=== PATIENT | male | born 1960 | race Caucasian/White ===

== ENCOUNTER 2016-09-25 08:20 | Emergency (ER) | payer SELFPAY ==
[2016-09-25 08:38] VITALS: BP 186/93
--- NOTE | 2016-09-25 09:13 | EDM.PDOC ---
ED HISTORY OF PRESENT ILLNESS - General Chief Complaint: ENT Problem Stated Complaint: INFECTED TOOTH Time Seen by Provider: 09/25/16 09:07 Source: Reports: Patient, RN notes reviewed History Limitations: Reports: No limitations - History of Present Illness INITIAL COMMENTS - FREE TEXT/NARRATIVE: 55-year-old male presents with left lower jaw pain. Long history of poor dental hygiene with increasing pain involving stubs of left incisors and canine. No fever, sweats, or chills. Has been using Excedrin for control of discomfort. Apparently dentist and has not seen patient due to lack up appointments. Symptom Onset Date: 09/21/16 Severity: moderate Location, General: Reports: other (Mouth.) Quality: Reports: Ache - Related Data Allergies/ADRs: Allergies Allergy/AdvReac Type Severity Reaction Status Date / Time camphor* [From Vicks Vaporub] Allergy Shortness Verified 09/25/16 08:37 of Breath eucalyptus Allergy Shortness Verified 09/25/16 08:37 [From Vicks Vaporub] of Breath menthol [From Vicks Vaporub] Allergy Shortness Verified 09/25/16 08:37 of Breath petrolatum,white Allergy Shortness Verified 09/25/16 08:37 [From Vicks Vaporub] of Breath turpentine oil Allergy Shortness Verified 09/25/16 08:37 [From Vicks Vaporub] of Breath Home Meds: Home Meds NK [No Known Home Meds] 03/12/14 [History] Past Medical History - Past Health History Medical/Surgical History: Denies Medical/Surgical History Social & Family History - Tobacco Use Smoking Status *Q: Current Every Day Smoker Years of Tobacco use: 30 Packs/Tins Daily: 1 - Caffeine Use Caffeine Use: Reports: Coffee - Alcohol Use Days Per Week of Alcohol Use: 0 - Recreational Drug Use Recreational Drug Use: No ED ROS GENERAL - Review of Systems Review Of Systems: ROS reveals no pertinent complaints other than HPI. ED EXAM, GENERAL - Physical Exam Exam: See Below Exam Limited By: No limitations General Appearance: alert, WD/WN, no apparent distress Ears: normal external exam, normal canal, hearing grossly normal, normal TMs Throat/Mouth: Other (Patient has bridge and upper. Left lower jaw has 2 stubs of teeth with tenderness on percussion of gum) Head: facial swelling Neck: normal inspection, supple, non-tender Respiratory/Chest: no respiratory distress Course - Vital Signs Text/Narrative:: Patient with evidence of tooth abscess left lower jaw. Treated with Pen-Vee K 500 mg 4 times daily x10 days Ibuprofen 800 mg 3 times a day when necessary Offered patient appointment to see dentist associated with hospital He will make own appointment Last Recorded V/S: Last Vital Signs Temp 98.5 F 09/25/16 08:33 Pulse 59 L 09/25/16 08:33 Resp 16 09/25/16 08:33 BP 186/93 H 09/25/16 08:33 Pulse Ox 96 09/25/16 08:33 Departure - Departure Time of Disposition: 09:12 Disposition: Home, Self-Care 01 Clinical Impression: Toothache, Dental abscess Forms: ED Department Discharge Additional Instructions: Pen-Vee K 500 mg 4 times daily x10 days Ibuprofen 800 mg 3 times a day when necessary Make appointment to see dentist.
== END 2016-09-25 09:15 | disposition home or self-care (01) ==
LOC: JP.ED 08:20
DX: K04.7 Periapical abscess without sinus (principal); F17.210 Nicotine dependence, cigarettes, uncomplicated; Z88.8 Allergy status to other drugs, medicaments and biological substances
CPT/HCPCS: 99283

== ENCOUNTER 2017-08-02 00:48 | Emergency (ER) | payer SELFPAY ==
[2017-08-02] MEDS ORDERED: Naloxone 0.4 MG/ML SDV IVPUSH ONE (00:52)
[2017-08-02] MEDS ORDERED: Sodium Chloride 0.9% 1,000 ML IV SCH (01:00)
--- NOTE | 2017-08-02 01:05 | EDM.PDOC ---
ED HPI GENERAL MEDICAL PROBLEM - General Stated Complaint: MED[facility] Time Seen by Provider: 08/02/17 00:52 Source of Information: Reports: EMS, RN Notes Reviewed History Limitations: Reports: Altered Mental Status - History of Present Illness INITIAL COMMENTS - FREE TEXT/NARRATIVE: 56-year-old gentleman brought in by EMS services for a collapse and unresponsive event, no family members are present story given by EMS was he was at the kitchen table collapsed to the floor was diaphoretic GCS of 3 on scene helicopter was initiated brought to the emergency department for further evaluation. On arrival he was arousable to painful stimuli would follow commands all extremities - Related Data Allergies Allergy/AdvReac Type Severity Reaction Status Date / Time camphor* [From Vicks Vaporub] Allergy Shortness Verified 08/02/17 01:42 of Breath eucalyptus Allergy Shortness Verified 08/02/17 01:42 [From Vicks Vaporub] of Breath menthol [From Vicks Vaporub] Allergy Shortness Verified 08/02/17 01:42 of Breath petrolatum,white Allergy Shortness Verified 08/02/17 01:42 [From Vicks Vaporub] of Breath turpentine oil Allergy Shortness Verified 08/02/17 01:42 [From Vicks Vaporub] of Breath Home Meds: Home Meds Hydrochlorothiazide 12.5 mg PO DAILY 08/02/17 [History] Past Medical History Cardiovascular History: Reports: Hypertension Social & Family History - Tobacco Use Smoking Status *Q: Current Every Day Smoker Years of Tobacco use: 30 Packs/Tins Daily: 1 - Caffeine Use Caffeine Use: Reports: Coffee - Alcohol Use Days Per Week of Alcohol Use: 0 - Recreational Drug Use Recreational Drug Use: No ED ROS GENERAL - Review of Systems Review Of Systems: Unable To Obtain ED EXAM, NEURO - Physical Exam Exam: See Below Exam Limited By: Altered Mental Status General Appearance: Lethargic Eye Exam: Bilateral Eye: Normal Inspection Ears: Normal External Exam, Normal Canal, Hearing Grossly Normal, Normal TMs Nose: Normal Inspection, Normal Mucosa, No Blood Throat/Mouth: Normal Inspection, Normal Lips, Normal Teeth, Normal Gums, Normal Oropharynx, Normal Voice, No Airway Compromise Head Exam: Atraumatic, Normocephalic Neck: Normal Inspection, Supple, Non-Tender, Full Range of Motion Respiratory/Chest: No Respiratory Distress, Lungs Clear, Normal Breath Sounds, No Accessory Muscle Use Cardiovascular: Regular Rate, Rhythm, No Murmur GI/Abdominal: Soft, Non-Tender Neurological: Other (GCS of 11) Course - Vital Signs Last Recorded V/S: Last Vital Signs Temp 96.7 F 08/02/17 02:15 Pulse 61 08/02/17 02:15 Resp 14 08/02/17 02:15 BP 166/82 H 08/02/17 02:15 Pulse Ox 98 08/02/17 02:15 - Orders/Labs/Meds Orders: Active Orders 24 hr Category Date Time Status Head wo Cont [CT] Urgent Exams 08/02/17 00:52 Taken Sodium Chloride 0.9% [Normal Saline] 1,000 ml Med 08/02/17 01:00 Active IV ASDIRECTED Medication Orders Sodium Chloride (Normal Saline) 1,000 mls @ 125 mls/hr IV ASDIRECTED RODOLFO Last Admin: 08/02/17 01:12 Dose: 125 mls/hr Labs: Laboratory Tests 08/02/17 08/02/17 08/02/17 Range/Units 01:00 01:00 01:00 WBC 6.3 (4.5-11.0) K/uL RBC 4.28 L (4.30-5.90) M/uL Hgb 13.3 (12.0-15.0) g/dL Hct 39.1 L (40.0-54.0) % MCV 91 (80-98) fL MCH 31 (27-31) pg MCHC 34 (32-36) % Plt Count 197 (150-400) K/uL Neut % (Auto) 44 (36-66) % Lymph % (Auto) 37 (24-44) % [place] % (Auto) 16 H (2-6) % Eos % (Auto) 3 (2-4) % Baso % (Auto) 1 (0-1) % D-Dimer, Quantitative (0.0-400.0) ng/mL Puncture Site ABG pH (7.350-7.450) ABG pCO2 (35.0-42.0) mmHg ABG pO2 (75.0-100.0) mmHg ABG HCO3 (22.0-26.0) mmol/L ABG Total CO2 (23.0-27.0) mmol/L ABG O2 Saturation (95.0-98.0) % ABG O2 Content (15.0-23.0) %vol ABG Base Excess mm/L ABG Hemoglobin (13.5-18.0) g/dL ABG Oxyhemoglobin % ABG Carboxyhemoglobin (0.0-1.6) % ABG Methemoglobin % Onur Test O2 Delivery Device Oxygen Flow Rate L Sodium 139 L (140-148) mmol/L Potassium 3.3 L (3.6-5.2) mmol/L Chloride 103 (100-108) mmol/L Carbon Dioxide 27 (21-32) mmol/L Anion Gap 12.3 (5.0-14.0) mmol/L BUN 10 (7-18) mg/dL Creatinine 1.0 (0.8-1.3) mg/dL Est Cr Clr Drug Dosing 82.21 mL/min Estimated GFR (MDRD) > 60 (>60) Glucose 110 H (74-106) mg/dL Lactic Acid (0.4-2.0) mmol/L Calcium 8.2 L (8.5-10.1) mg/dL Total Bilirubin 0.5 (0.2-1.0) mg/dL AST 16 (15-37) U/L ALT 31 (12-78) U/L Alkaline Phosphatase 101 (46-116) U/L Ammonia 20 (11-32) mmol/L Troponin I < 0.017 (0.000-0.056) ng/mL Total Protein 6.1 L (6.4-8.2) g/dL Albumin 3.0 L (3.4-5.0) g/dL Globulin 3.1 (2.3-3.5) g/dL Albumin/Globulin Ratio 1.0 L (1.2-2.2) Urine Color Urine Appearance Urine pH (4.5-8.0) Ur Specific Danielson (1.008-1.030) Urine Protein (NEGATIVE) mg/dL Urine Glucose (UA) (NEGATIVE) mg/dL Urine Ketones (NEGATIVE) mg/dL Urine Occult Blood (NEGATIVE) Urine Nitrite (NEGAITVE) Urine Bilirubin (NEGATIVE) Urine Urobilinogen (NORMAL) mg/dL Ur Leukocyte Esterase (NEGATIVE) Urine RBC (0-5) Urine WBC (0-5) Ur Epithelial Cells Amorphous Sediment Urine Bacteria Urine Mucus Salicylates (2.0-20.0) mg/dL Urine Opiates Screen (NEGATIVE) Ur Oxycodone Screen (NEGATIVE) Urine Methadone Screen (NEGATIVE) Ur Propoxyphene Screen (NEGATIVE) Acetaminophen 2.4 L (10.0-30.0) ug/mL Ur Barbiturates Screen (NEGATIVE) Ur Tricyclics Screen (NEGATIVE) Ur Phencyclidine Scrn (NEGATIVE) Ur Amphetamine Screen (NEGATIVE) U Methamphetamines Scrn (NEGATIVE) Urine MDMA Screen (NEGATIVE) U Benzodiazepines Scrn (NEGATIVE) U Cocaine Metab Screen (NEGATIVE) U Marijuana (THC) Screen (NEGATIVE) Ethyl Alcohol mg/dL 08/02/17 08/02/17 08/02/17 Range/Units 01:00 01:00 01:00 WBC (4.5-11.0) K/uL RBC (4.30-5.90) M/uL Hgb (12.0-15.0) g/dL Hct (40.0-54.0) % MCV (80-98) fL MCH (27-31) pg MCHC (32-36) % Plt Count (150-400) K/uL Neut % (Auto) (36-66) % Lymph % (Auto) (24-44) % [place] % (Auto) (2-6) % Eos % (Auto) (2-4) % Baso % (Auto) (0-1) % D-Dimer, Quantitative (0.0-400.0) ng/mL Puncture Site ABG pH (7.350-7.450) ABG pCO2 (35.0-42.0) mmHg ABG pO2 (75.0-100.0) mmHg ABG HCO3 (22.0-26.0) mmol/L ABG Total CO2 (23.0-27.0) mmol/L ABG O2 Saturation (95.0-98.0) % ABG O2 Content (15.0-23.0) %vol ABG Base Excess mm/L ABG Hemoglobin (13.5-18.0) g/dL ABG Oxyhemoglobin % ABG Carboxyhemoglobin (0.0-1.6) % ABG Methemoglobin % Onur Test O2 Delivery Device Oxygen Flow Rate L Sodium (140-148) mmol/L Potassium (3.6-5.2) mmol/L Chloride (100-108) mmol/L Carbon Dioxide (21-32) mmol/L Anion Gap (5.0-14.0) mmol/L BUN (7-18) mg/dL Creatinine (0.8-1.3) mg/dL Est Cr Clr Drug Dosing mL/min Estimated GFR (MDRD) (>60) Glucose (74-106) mg/dL Lactic Acid 1.5 (0.4-2.0) mmol/L Calcium (8.5-10.1) mg/dL Total Bilirubin (0.2-1.0) mg/dL AST (15-37) U/L ALT (12-78) U/L Alkaline Phosphatase (46-116) U/L Ammonia (11-32) mmol/L Troponin I (0.000-0.056) ng/mL Total Protein (6.4-8.2) g/dL Albumin (3.4-5.0) g/dL Globulin (2.3-3.5) g/dL Albumin/Globulin Ratio (1.2-2.2) Urine Color Urine Appearance Urine pH (4.5-8.0) Ur Specific Danielson (1.008-1.030) Urine Protein (NEGATIVE) mg/dL Urine Glucose (UA) (NEGATIVE) mg/dL Urine Ketones (NEGATIVE) mg/dL Urine Occult Blood (NEGATIVE) Urine Nitrite (NEGAITVE) Urine Bilirubin (NEGATIVE) Urine Urobilinogen (NORMAL) mg/dL Ur Leukocyte Esterase (NEGATIVE) Urine RBC (0-5) Urine WBC (0-5) Ur Epithelial Cells Amorphous Sediment Urine Bacteria Urine Mucus Salicylates 4.0 (2.0-20.0) mg/dL Urine Opiates Screen (NEGATIVE) Ur Oxycodone Screen (NEGATIVE) Urine Methadone Screen (NEGATIVE) Ur Propoxyphene Screen (NEGATIVE) Acetaminophen (10.0-30.0) ug/mL Ur Barbiturates Screen (NEGATIVE) Ur Tricyclics Screen (NEGATIVE) Ur Phencyclidine Scrn (NEGATIVE) Ur Amphetamine Screen (NEGATIVE) U Methamphetamines Scrn (NEGATIVE) Urine MDMA Screen (NEGATIVE) U Benzodiazepines Scrn (NEGATIVE) U Cocaine Metab Screen (NEGATIVE) U Marijuana (THC) Screen (NEGATIVE) Ethyl Alcohol < 3 mg/dL 08/02/17 08/02/17 08/02/17 Range/Units 01:08 01:08 01:12 WBC (4.5-11.0) K/uL RBC (4.30-5.90) M/uL Hgb (12.0-15.0) g/dL Hct (40.0-54.0) % MCV (80-98) fL MCH (27-31) pg MCHC (32-36) % Plt Count (150-400) K/uL Neut % (Auto) (36-66) % Lymph % (Auto) (24-44) % [place] % (Auto) (2-6) % Eos % (Auto) (2-4) % Baso % (Auto) (0-1) % D-Dimer, Quantitative 229 (0.0-400.0) ng/mL Puncture Site R radial ABG pH 7.434 (7.350-7.450) ABG pCO2 39.3 (35.0-42.0) mmHg ABG pO2 69.1 L (75.0-100.0) mmHg ABG HCO3 25.9 (22.0-26.0) mmol/L ABG Total CO2 22.9 L (23.0-27.0) mmol/L ABG O2 Saturation 94.5 L (95.0-98.0) % ABG O2 Content 16.9 (15.0-23.0) %vol ABG Base Excess 2.1 mm/L ABG Hemoglobin 13.2 L (13.5-18.0) g/dL ABG Oxyhemoglobin 90.9 % ABG Carboxyhemoglobin 3.3 H (0.0-1.6) % ABG Methemoglobin 0.5 % Onur Test Ok O2 Delivery Device Nasal cannula Oxygen Flow Rate L Sodium (140-148) mmol/L Potassium (3.6-5.2) mmol/L Chloride (100-108) mmol/L Carbon Dioxide (21-32) mmol/L Anion Gap (5.0-14.0) mmol/L BUN (7-18) mg/dL Creatinine (0.8-1.3) mg/dL Est Cr Clr Drug Dosing mL/min Estimated GFR (MDRD) (>60) Glucose (74-106) mg/dL Lactic Acid (0.4-2.0) mmol/L Calcium (8.5-10.1) mg/dL Total Bilirubin (0.2-1.0) mg/dL AST (15-37) U/L ALT (12-78) U/L Alkaline Phosphatase (46-116) U/L Ammonia (11-32) mmol/L Troponin I (0.000-0.056) ng/mL Total Protein (6.4-8.2) g/dL Albumin (3.4-5.0) g/dL Globulin (2.3-3.5) g/dL Albumin/Globulin Ratio (1.2-2.2) Urine Color Urine Appearance Urine pH (4.5-8.0) Ur Specific Danielson (1.008-1.030) Urine Protein (NEGATIVE) mg/dL Urine Glucose (UA) (NEGATIVE) mg/dL Urine Ketones (NEGATIVE) mg/dL Urine Occult Blood (NEGATIVE) Urine Nitrite (NEGAITVE) Urine Bilirubin (NEGATIVE) Urine Urobilinogen (NORMAL) mg/dL Ur Leukocyte Esterase (NEGATIVE) Urine RBC (0-5) Urine WBC (0-5) Ur Epithelial Cells Amorphous Sediment Urine Bacteria Urine Mucus Salicylates (2.0-20.0) mg/dL Urine Opiates Screen Negative (NEGATIVE) Ur Oxycodone Screen Negative (NEGATIVE) Urine Methadone Screen Negative (NEGATIVE) Ur Propoxyphene Screen Negative (NEGATIVE) Acetaminophen (10.0-30.0) ug/mL Ur Barbiturates Screen Negative (NEGATIVE) Ur Tricyclics Screen Negative (NEGATIVE) Ur Phencyclidine Scrn Negative (NEGATIVE) Ur Amphetamine Screen Negative (NEGATIVE) U Methamphetamines Scrn Negative (NEGATIVE) Urine MDMA Screen Negative (NEGATIVE) U Benzodiazepines Scrn Negative (NEGATIVE) U Cocaine Metab Screen Negative (NEGATIVE) U Marijuana (THC) Screen Negative (NEGATIVE) Ethyl Alcohol mg/dL 08/02/17 Range/Units 01:12 WBC (4.5-11.0) K/uL RBC (4.30-5.90) M/uL Hgb (12.0-15.0) g/dL Hct (40.0-54.0) % MCV (80-98) fL MCH (27-31) pg MCHC (32-36) % Plt Count (150-400) K/uL Neut % (Auto) (36-66) % Lymph % (Auto) (24-44) % [place] % (Auto) (2-6) % Eos % (Auto) (2-4) % Baso % (Auto) (0-1) % D-Dimer, Quantitative (0.0-400.0) ng/mL Puncture Site ABG pH (7.350-7.450) ABG pCO2 (35.0-42.0) mmHg ABG pO2 (75.0-100.0) mmHg ABG HCO3 (22.0-26.0) mmol/L ABG Total CO2 (23.0-27.0) mmol/L ABG O2 Saturation (95.0-98.0) % ABG O2 Content (15.0-23.0) %vol ABG Base Excess mm/L ABG Hemoglobin (13.5-18.0) g/dL ABG Oxyhemoglobin % ABG Carboxyhemoglobin (0.0-1.6) % ABG Methemoglobin % Onur Test O2 Delivery Device Oxygen Flow Rate L Sodium (140-148) mmol/L Potassium (3.6-5.2) mmol/L Chloride (100-108) mmol/L Carbon Dioxide (21-32) mmol/L Anion Gap (5.0-14.0) mmol/L BUN (7-18) mg/dL Creatinine (0.8-1.3) mg/dL Est Cr Clr Drug Dosing mL/min Estimated GFR (MDRD) (>60) Glucose (74-106) mg/dL Lactic Acid (0.4-2.0) mmol/L Calcium (8.5-10.1) mg/dL Total Bilirubin (0.2-1.0) mg/dL AST (15-37) U/L ALT (12-78) U/L Alkaline Phosphatase (46-116) U/L Ammonia (11-32) mmol/L Troponin I (0.000-0.056) ng/mL Total Protein (6.4-8.2) g/dL Albumin (3.4-5.0) g/dL Globulin (2.3-3.5) g/dL Albumin/Globulin Ratio (1.2-2.2) Urine Color Yellow Urine Appearance Clear Urine pH 5.0 (4.5-8.0) Ur Specific Danielson 1.015 (1.008-1.030) Urine Protein Negative (NEGATIVE) mg/dL Urine Glucose (UA) Normal (NEGATIVE) mg/dL Urine Ketones Negative (NEGATIVE) mg/dL Urine Occult Blood Negative (NEGATIVE) Urine Nitrite Negative (NEGAITVE) Urine Bilirubin Negative (NEGATIVE) Urine Urobilinogen Normal (NORMAL) mg/dL Ur Leukocyte Esterase Negative (NEGATIVE) Urine RBC 0-5 (0-5) Urine WBC 0-5 (0-5) Ur Epithelial Cells Few Amorphous Sediment Not seen Urine Bacteria Few Urine Mucus Not seen Salicylates (2.0-20.0) mg/dL Urine Opiates Screen (NEGATIVE) Ur Oxycodone Screen (NEGATIVE) Urine Methadone Screen (NEGATIVE) Ur Propoxyphene Screen (NEGATIVE) Acetaminophen (10.0-30.0) ug/mL Ur Barbiturates Screen (NEGATIVE) Ur Tricyclics Screen (NEGATIVE) Ur Phencyclidine Scrn (NEGATIVE) Ur Amphetamine Screen (NEGATIVE) U Methamphetamines Scrn (NEGATIVE) Urine MDMA Screen (NEGATIVE) U Benzodiazepines Scrn (NEGATIVE) U Cocaine Metab Screen (NEGATIVE) U Marijuana (THC) Screen (NEGATIVE) Ethyl Alcohol mg/dL Meds: Medications Generic Name Dose Route Start Last Admin Trade Name Freq PRN Reason Stop Dose Admin Sodium Chloride 1,000 mls @ 125 mls/hr 08/02/17 01:00 08/02/17 01:12 Normal Saline IV 125 mls/hr ASDIRECTED RODOLFO Administration Discontinued Medications Generic Name Dose Route Start Last Admin Trade Name Freq PRN Reason Stop Dose Admin Naloxone HCl 0.4 mg 08/02/17 00:52 08/02/17 01:14 Narcan IVPUSH 08/02/17 00:53 0.4 mg ONETIME ONE Administration Departure - Departure Time of Disposition: 02:20 Disposition: Home, Self-Care 01 Condition: Fair Clinical Impression: Seizure-like activity - Discharge Information Referrals: Jordan Mendenhall MD [Primary Care Provider] - Additional Instructions: Please followup with your primary care provider in 3-5 days if not better, please call return to the emergency department with worsening of symptoms. - My Orders Last 24 Hours: My Active Orders 08/02/17 00:52 Head wo Cont [CT] Urgent 08/02/17 01:00 Sodium Chloride 0.9% [Normal Saline] 1,000 ml IV ASDIRECTED - Assessment/Plan Last 24 Hours: My Active Orders 08/02/17 00:52 Head wo Cont [CT] Urgent 08/02/17 01:00 Sodium Chloride 0.9% [Normal Saline] 1,000 ml IV ASDIRECTED Plan: Assessment Acuity = acute Site and laterality = seizure-like activity, again the patient with known history hypertension Etiology = unclear etiology possibly related to ingestion of a drug TheraFlu Manifestations = none Location of injury = Home Lab values = CBC, CMP, d-dimer, troponin, ammonia level all within normal limits EKG demonstrates sinus rhythm CT scan of the head shows no acute process urine drug screen toxicology all negative acetaminophen salicylic acid all negative Plan He continued to improve initial GCS was around 11 this then improved to 15 answered questions appropriately I did talk about hospital admission and transfer to neurology further workup he declined insisted on going home. Family members were present they did talk about this event at which both his eyes were open and closed did not really describe generalized tonic-clonic activity so unclear if this was a seizure or not. I'm suspicious for adverse reaction to medication. Elected to discharge to home he'll follow-up with his primary care in 3-5 days for reevaluation will return to the emergency department with any development of new symptoms or repeat symptoms This note was dictated using [employer] voice recognition software please call with any questions on syntax or nicholas.
[2017-08-02 01:47] LABS: ACETAMINOPHEN 2.4 ug/mL (10.0-30.0)
[2017-08-02 02:16] VITALS: BP 166/82
== END 2017-08-02 02:33 | disposition home or self-care (01) ==
LOC: JP.ED 00:48
DX: R29.90 Unspecified symptoms and signs involving the nervous system (principal); F17.210 Nicotine dependence, cigarettes, uncomplicated; I10 Essential (primary) hypertension; Z79.899 Other long term (current) drug therapy; Z88.8 Allergy status to other drugs, medicaments and biological substances; Z91.048 Other nonmedicinal substance allergy status
CPT/HCPCS: 36415; 36600; 70450; 80053; 80305; 81001; 82140; 82803; 83605; 84484; 85025; 85379; 96361; 96374; 99285; G0480; J2310; J7040; 99284

== ENCOUNTER 2018-08-12 04:23 | Emergency (ER) | payer SELFPAY ==
[2018-08-12] MEDS ORDERED: Sodium Chloride 0.9% 10 ML Syringe FLUSH PRN (04:27)
[2018-08-12] MEDS ORDERED: Sodium Chloride 0.9% 1,000 ML IV SCH ×2 (04:30→05:45)
--- NOTE | 2018-08-12 04:52 | EDM.PDOC ---
<Keisha Gutiérrez - Last Filed: 08/12/18 05:54> ED HPI GENERAL MEDICAL PROBLEM - General Chief Complaint: General Stated Complaint: WEAK Time Seen by Provider: 08/12/18 04:49 Source of Information: Reports: Patient, Family History Limitations: Reports: No Limitations - History of Present Illness INITIAL COMMENTS - FREE TEXT/NARRATIVE: pt woke up being very dizzy and he was sweaty. He has not been vomiting. He is on losartan and hctz 125. He states recently when he takes his bp he does not feel well. he has been occasionally skepping. Onset: Today, Sudden Duration: Hour(s): Location: Reports: Generalized Quality: Reports: Other (pt is not having chest pain. ) Associated Symptoms: Reports: Diaphoresis, Weakness denies Pain Score (Numeric/FACES): 0 - Related Data Allergies Allergy/AdvReac Type Severity Reaction Status Date / Time camphor* [From Vicks Vaporub] Allergy Shortness Verified 08/12/18 04:43 of Breath eucalyptus Allergy Shortness Verified 08/12/18 04:43 [From Vicks Vaporub] of Breath menthol [From Vicks Vaporub] Allergy Shortness Verified 08/12/18 04:43 of Breath petrolatum,white Allergy Shortness Verified 08/12/18 04:43 [From Vicks Vaporub] of Breath turpentine oil Allergy Shortness Verified 08/12/18 04:43 [From Vicks Vaporub] of Breath Home Meds: Home Meds Losartan [Cozaar] 100 mg PO DAILY 08/12/18 [History] hydroCHLOROthiazide [Hydrochlorothiazide] 25 mg PO DAILY 08/12/18 [History] Past Medical History Cardiovascular History: Reports: Hypertension - Infectious Disease History Infectious Disease History: Reports: Chicken Pox Social & Family History - Family History Family Medical History: Unobtainable - Caffeine Use Caffeine Use: Reports: Coffee ED ROS GENERAL - Review of Systems Review Of Systems: See Below Constitutional: Reports: Weakness, Diaphoresis, Other (pt woke up very diaphoretic. ) HEENT: Reports: No Symptoms Respiratory: Reports: No Symptoms Cardiovascular: Reports: No Symptoms Endocrine: Reports: No Symptoms GI/Abdominal: Reports: No Symptoms : Reports: No Symptoms Musculoskeletal: Reports: No Symptoms Skin: Reports: No Symptoms ED EXAM, GENERAL - Physical Exam Exam: See Below Free Text/Narrative:: pt arrived with a history of being very dizzy when he woke up. He was very sweaty. He did not have chest pain. He has hypertension and he is on 2 bp meds. He states recently when he takes his meds he does not feel well. He has not seen his Dr recently. Exam Limited By: No Limitations General Appearance: Alert, Mild Distress, Other (Pt is very diaphoretic. pupils are equal and reactive. ) Ears: Normal TMs Nose: Normal Inspection Throat/Mouth: Normal Inspection Head: Atraumatic Neck: Normal Inspection Respiratory/Chest: No Respiratory Distress Cardiovascular: Regular Rate, Rhythm GI/Abdominal: Soft, Non-Tender (Male) Exam: Deferred Rectal (Males) Exam: Deferred Back Exam: Normal Inspection Extremities: Normal Inspection Neurological: Alert, Oriented, Normal Cognition, Other (pt was a little vague when he first arrived. His bp was 95/60. ) Psychiatric: Anxious Course - Vital Signs Last Recorded V/S: Last Vital Signs Temp 96.1 F 08/12/18 04:57 Pulse 64 08/12/18 08:34 Resp 13 08/12/18 07:35 BP 126/60 08/12/18 08:34 Pulse Ox 97 08/12/18 08:34 - Orders/Labs/Meds Orders: Active Orders 24 hr Category Date Time Status EKG Documentation Completion [RC] ASDIRECTED Care 08/12/18 04:28 Active Chest 1V Frontal [CR] Stat Exams 08/12/18 05:48 Taken UA W/MICROSCOPIC [URIN] Urgent Lab 08/12/18 04:27 Ordered Saline Lock Insert [OM.PC] Routine Oth 08/12/18 04:27 Ordered EKG 12 Lead [EK] Routine Ther 08/12/18 04:28 Ordered Labs: Laboratory Tests 08/12/18 08/12/18 08/12/18 Range/Units 04:55 04:55 04:55 WBC 8.1 (4.5-11.0) K/uL RBC 4.18 L (4.30-5.90) M/uL Hgb 12.9 (12.0-15.0) g/dL Hct 38.4 L (40.0-54.0) % MCV 92 (80-98) fL MCH 31 (27-31) pg MCHC 34 (32-36) % Plt Count 225 (150-400) K/uL Neut % (Auto) 59 (36-66) % Lymph % (Auto) 25 (24-44) % [place] % (Auto) 13 H (2-6) % Eos % (Auto) 2 (2-4) % Baso % (Auto) 1 (0-1) % Sodium 138 L (140-148) mmol/L Potassium 2.9 L* (3.6-5.2) mmol/L Chloride 102 (100-108) mmol/L Carbon Dioxide 27 (21-32) mmol/L Anion Gap 11.9 (5.0-14.0) mmol/L BUN 16 D (7-18) mg/dL Creatinine 1.2 (0.8-1.3) mg/dL Est Cr Clr Drug Dosing 70.13 mL/min Estimated GFR (MDRD) > 60 (>60) Glucose 123 H (74-106) mg/dL Lactic Acid (0.4-2.0) mmol/L Calcium 8.7 (8.5-10.1) mg/dL Total Bilirubin 0.4 (0.2-1.0) mg/dL AST 16 (15-37) U/L ALT 33 (12-78) U/L Alkaline Phosphatase 120 H (46-116) U/L Troponin I < 0.017 (0.000-0.056) ng/mL Total Protein 6.7 (6.4-8.2) g/dL Albumin 3.0 L (3.4-5.0) g/dL Globulin 3.7 H (2.3-3.5) g/dL Albumin/Globulin Ratio 0.8 L (1.2-2.2) 08/12/18 08/12/18 Range/Units 04:55 07:40 WBC (4.5-11.0) K/uL RBC (4.30-5.90) M/uL Hgb (12.0-15.0) g/dL Hct (40.0-54.0) % MCV (80-98) fL MCH (27-31) pg MCHC (32-36) % Plt Count (150-400) K/uL Neut % (Auto) (36-66) % Lymph % (Auto) (24-44) % [place] % (Auto) (2-6) % Eos % (Auto) (2-4) % Baso % (Auto) (0-1) % Sodium (140-148) mmol/L Potassium (3.6-5.2) mmol/L Chloride (100-108) mmol/L Carbon Dioxide (21-32) mmol/L Anion Gap (5.0-14.0) mmol/L BUN (7-18) mg/dL Creatinine (0.8-1.3) mg/dL Est Cr Clr Drug Dosing mL/min Estimated GFR (MDRD) (>60) Glucose (74-106) mg/dL Lactic Acid 1.3 (0.4-2.0) mmol/L Calcium (8.5-10.1) mg/dL Total Bilirubin (0.2-1.0) mg/dL AST (15-37) U/L ALT (12-78) U/L Alkaline Phosphatase (46-116) U/L Troponin I < 0.017 (0.000-0.056) ng/mL Total Protein (6.4-8.2) g/dL Albumin (3.4-5.0) g/dL Globulin (2.3-3.5) g/dL Albumin/Globulin Ratio (1.2-2.2) Meds: Medications Discontinued Medications Generic Name Dose Route Start Last Admin Trade Name Freq PRN Reason Stop Dose Admin Sodium Chloride 1,000 mls @ 999 mls/hr 08/12/18 04:30 08/12/18 04:50 Normal Saline IV 999 mls/hr ASDIRECTED RODOLFO Administration Potassium Chloride 20 meq/ 100 mls @ 50 mls/hr 08/12/18 05:40 08/12/18 06:15 Premix IV 08/12/18 07:39 50 mls/hr ONETIME ONE Administration Sodium Chloride 1,000 mls @ 500 mls/hr 08/12/18 05:45 08/12/18 05:55 Normal Saline IV 500 mls/hr ASDIRECTED RODOLFO Administration Lidocaine HCl 2 ml 08/12/18 06:19 08/12/18 06:15 Xylocaine-Mpf 1% INJECT 08/12/18 06:20 2 ml ONETIME ONE Administration Sodium Chloride 10 ml 08/12/18 04:27 08/12/18 06:17 Saline Flush FLUSH 10 ml ASDIRECTED PRN Administration Keep Vein Open - Re-Assessments/Exams Free Text/Narrative Re-Assessment/Exam: 08/12/18 06:01 pt has a k of 2.9 His trop id normal. his bp was low on arrival. His ekg shows a left bundle block. 08/12/18 06:05 pt will be given 20 meq of k. A second trop will be obtained at 7 forty five. Departure - Departure Disposition: Home, Self-Care 01 Clinical Impression: Hypokalemia Hypotension Qualifiers: Hypotension type: hypotension due to drug Qualified Code(s): I95.2 - Hypotension due to drugs - Discharge Information Instructions: Hypotension, [id number] Referrals: PCP,None [Primary Care Provider] - Forms: ED Department Discharge Care Plan Goals: Stop hydrochlorothiazide, and recheck with your regular doctor as scheduled. Return anytime if worsening or concerns. Stay hydrated. Increase activity as tolerated. <Rashi Johns - Last Filed: 08/12/18 09:05> Course - Re-Assessments/Exams Free Text/Narrative Re-Assessment/Exam: 08/12/18 08:26 Patient care turned over from Dr. Gutiérrez. Patient remained stable, normal blood pressure and improvement of symptoms. Second troponin was 0. Patient was discharged with instructions to stop hydrochlorothiazide and recheck with his regular physician as scheduled. Departure - Departure Time of Disposition: 08:39 Condition: Good
[2018-08-12] MEDS ORDERED: Potassium Chloride 20 MEQ in Premix Bag 1 BAG IV ONE (05:40)
[2018-08-12 08:35] VITALS: BP 126/60
== END 2018-08-12 08:39 | disposition home or self-care (01) ==
LOC: JP.ED 04:23
DX: E87.6 Hypokalemia (principal); I95.2 Hypotension due to drugs; I10 Essential (primary) hypertension; Z88.8 Allergy status to other drugs, medicaments and biological substances; Z79.899 Other long term (current) drug therapy
CPT/HCPCS: 36415; 71045; 80053; 83605; 84484; 85025; 93005; 96361; 96365; 96366; 99285; J3480; J7030; 93010

== ENCOUNTER 2018-09-16 09:40 | Emergency (ER) | payer OTHER ==
[2018-09-16 10:13] VITALS: BP 177/80
--- NOTE | 2018-09-16 10:32 | EDM.PDOC ---
ED HPI GENERAL MEDICAL PROBLEM - General Chief Complaint: Upper Extremity Injury/Pain Stated Complaint: RT ARM PAIN Time Seen by Provider: 09/16/18 10:20 Source of Information: Reports: Patient History Limitations: Reports: No Limitations - History of Present Illness Onset: Gradual Duration: Getting Worse Location: Reports: Upper Extremity, Right (states has had gradual onset of pain to forearm that has increased to point of unbearable. 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, Other (see below) (muscle rub) Right Lower Arm Pain Score (Numeric/FACES): 6 - Related Data Allergies Allergy/AdvReac Type Severity Reaction Status Date / Time camphor* [From Vicks Vaporub] Allergy Shortness Verified 09/16/18 09:53 of Breath eucalyptus Allergy Shortness Verified 09/16/18 09:53 [From Vicks Vaporub] of Breath menthol [From Vicks Vaporub] Allergy Shortness Verified 09/16/18 09:53 of Breath petrolatum,white Allergy Shortness Verified 09/16/18 09:53 [From Vicks Vaporub] of Breath turpentine oil Allergy Shortness Verified 09/16/18 09:53 [From Vicks Vaporub] of Breath Home Meds: Home Meds Losartan [Cozaar] 100 mg PO DAILY 08/12/18 [History] Past Medical History HEENT History: Reports: Impaired Vision Cardiovascular History: Reports: Hypertension Musculoskeletal History: Reports: Back Pain, Chronic - Infectious Disease History Infectious Disease History: Reports: Chicken Pox, Measles, Mumps - Past Surgical History Head Surgeries/Procedures: Reports: None HEENT Surgical History: Reports: None Cardiovascular Surgical History: Reports: None Musculoskeletal Surgical History: Reports: None Dermatological Surgical History: Reports: None Social & Family History - Family History Family Medical History: Unobtainable - Tobacco Use Smoking Status *Q: Current Every Day Smoker Years of Tobacco use: 40 Packs/Tins Daily: 1 - Caffeine Use Caffeine Use: Reports: Coffee, Soda, Tea - Recreational Drug Use Recreational Drug Use: No Review of Systems - Review of Systems Review Of Systems: ROS reveals no pertinent complaints other than HPI. 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 Gradual onset of pain that seemed to start in his right wrist and now migrates to his elbow. Denies trauma or overuse. ) ED EXAM, GENERAL - Physical Exam Exam: See Below Exam Limited By: No Limitations General Appearance: Alert, WD/WN, No Apparent Distress Peripheral Pulses: 2+: Radial (L), Radial (R) Extremities: Normal Capillary Refill (negative tinsel test to right wrist. ), Other (Pain increased over palmar aspect of elbow upon palpation of tendon insertions. No obvious deformity or masses palapted. No erythema noted. No ecchymosis noted. ) Neurological: Alert, Oriented, Normal Cognition, No Motor/Sensory Deficits Skin Exam: Warm, Dry, Intact, Normal Color, No Rash Front/Back Body Diagram: 1 - pain radiates from elbow to wrist. Course - Vital Signs Text/Narrative:: patient presents to ER with three week history of elbow pain that has now traveled down to wrist. Pain to medial aspect of right elbow on ventral surface , increases with deep palpation and movement of wrist to supination/pronation. 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 Encouraged to use moist heat 20 minutes on x 3-4 times per day. Naprosyn prescription Will check for tennis elbow band at pharmacy. Last Recorded V/S: Last Vital Signs Temp 35.8 C 09/16/18 10:13 Pulse 62 09/16/18 10:13 Resp 14 09/16/18 10:13 BP 177/80 H 09/16/18 10:13 Pulse Ox 95 09/16/18 10:13 Departure - Departure Time of Disposition: 11:00 Disposition: Home, Self-Care 01 Condition: Good Clinical Impression: Tendonitis - Discharge Information *PRESCRIPTION DRUG MONITORING PROGRAM REVIEWED*: Not Applicable *COPY OF PRESCRIPTION DRUG MONITORING REPORT IN PATIENT KAITLYN: Not Applicable Instructions: Tendinitis Referrals: Kendal Barnes PA-C [Primary Care Provider] - Forms: ED Department Discharge
== END 2018-09-16 11:07 | disposition home or self-care (01) ==
LOC: JP.ED 09:40
DX: M77.9 Enthesopathy, unspecified (principal); I10 Essential (primary) hypertension; F17.210 Nicotine dependence, cigarettes, uncomplicated; Z88.8 Allergy status to other drugs, medicaments and biological substances
CPT/HCPCS: 99283

== ENCOUNTER 2020-06-30 20:58 | Emergency (ER) | payer SELFPAY ==
[2020-06-30 21:14] VITALS: BP 192/75; PULSE 64
--- NOTE | 2020-06-30 22:50 | EDM.PDOC ---
ED HPI GENERAL MEDICAL PROBLEM - General Chief Complaint: ENT Problem Stated Complaint: TOOTH ACH Time Seen by Provider: 06/30/20 21:15 Source of Information: Reports: Patient History Limitations: Reports: No Limitations - History of Present Illness INITIAL COMMENTS - FREE TEXT/NARRATIVE: 59-year-old male with chronic dental caries, has not been to a dentist in years who presents with dental pain in the mandible on the left side for 1 day. No swelling, no fever. He has been taking anti-inflammatories and it feels like it is getting worse. Onset: Gradual Duration: Day(s): (1 day) Location: Reports: Other (Left mandible) Associated Symptoms: Reports: No Other Symptoms - Related Data Allergies Allergy/AdvReac Type Severity Reaction Status Date / Time camphor* [From Vicks Vaporub] Allergy Shortness Verified 06/30/20 21:13 of Breath eucalyptus Allergy Shortness Verified 06/30/20 21:13 [From Vicks Vaporub] of Breath menthol [From Vicks Vaporub] Allergy Shortness Verified 06/30/20 21:13 of Breath petrolatum,white Allergy Shortness Verified 06/30/20 21:13 [From Vicks Vaporub] of Breath turpentine oil Allergy Shortness Verified 06/30/20 21:13 [From Vicks Vaporub] of Breath Home Meds: Home Meds Losartan [Cozaar] 100 mg PO DAILY 08/12/18 [History] Past Medical History HEENT History: Reports: Impaired Vision Cardiovascular History: Reports: Hypertension Musculoskeletal History: Reports: Back Pain, Chronic - Infectious Disease History Infectious Disease History: Reports: Chicken Pox, Measles, Mumps - Past Surgical History Head Surgeries/Procedures: Reports: None HEENT Surgical History: Reports: None Cardiovascular Surgical History: Reports: None Musculoskeletal Surgical History: Reports: None Dermatological Surgical History: Reports: None Social & Family History - Family History Family Medical History: Unobtainable - Tobacco Use Tobacco Use Status *Q: Current Every Day Tobacco User Years of Tobacco use: 40 Packs/Tins Daily: 0.5 Used Tobacco, but Quit: No Second Hand Smoke Exposure: No - Caffeine Use Caffeine Use: Reports: Coffee - Recreational Drug Use Recreational Drug Use: No ED ROS ENT - Review of Systems Review Of Systems: See Below Constitutional: Denies: Fever, Chills HEENT: Reports: Dental Pain Respiratory: Denies: Shortness of Breath Cardiovascular: Denies: Chest Pain GI/Abdominal: Denies: Nausea, Vomiting Neurological: Denies: Headache ED EXAM, ENT - Physical Exam Exam: See Below Exam Limited By: No Limitations General Appearance: Alert, No Apparent Distress (Looks uncomfortable but not distressed) Mouth/Throat: Other (Patient has severe advanced dental caries especially in the area of pain of the left lower incisors and canines. No significant gingival erythema or swelling) Respiratory/Chest: No Respiratory Distress Course - Vital Signs Last Recorded V/S: Last Vital Signs Temp 96.5 F L 06/30/20 21:19 Pulse 64 06/30/20 21:19 Resp 16 06/30/20 21:19 BP 192/75 H 06/30/20 21:19 Pulse Ox 98 06/30/20 21:19 - Re-Assessments/Exams Free Text/Narrative Re-Assessment/Exam: 06/30/20 21:30 This patient likely has infections as well as exposed nerves in these extensive dental caries. He was placed on penicillin 500 mg 4 times a day for the next 10 days, encouraged to continue with anti-inflammatories and given 10 hydrocodone for extra pain control. He promised to call the dentist office in the next 1 to 2 days who he already has an established relationship with. Departure - Departure Time of Disposition: 21:38 Disposition: Home, Self-Care 01 Clinical Impression: Dental abscess - Discharge Information Instructions: Dental Abscess, [id number] Referrals: PCP,None [Primary Care Provider] - Forms: ED Department Discharge Care Plan Goals: Take antibiotic 4 times a day until you see the dentist, continue with anti- inflammatories and use hydrocodone for extra breakthrough pain. It is very important that you call the dentist as soon as possible to get an appointment. Sepsis Event Note (ED) - Evaluation Sepsis Screening Result: No Definite Risk - Focused Exam Vital Signs: Vital Signs Temp Pulse Resp BP Pulse Ox 06/30/20 21:19 96.5 F L 64 16 192/75 H 98 06/30/20 21:13 96.5 F L 64 16 192/75 H 98
== END 2020-06-30 21:37 | disposition home or self-care (01) ==
LOC: JP.ED 20:58
DX: K04.7 Periapical abscess without sinus (principal); K02.9 Dental caries, unspecified; I10 Essential (primary) hypertension; F17.210 Nicotine dependence, cigarettes, uncomplicated; Z79.899 Other long term (current) drug therapy; Z88.8 Allergy status to other drugs, medicaments and biological substances
CPT/HCPCS: 99282; 99283

== ENCOUNTER 2020-07-28 17:41 | Emergency (ER) | payer OTHER, SELFPAY ==
[2020-07-28 18:27] VITALS: BP 186/70
--- NOTE | 2020-07-28 19:18 | EDM.PDOC ---
ED HPI GENERAL MEDICAL PROBLEM - General Chief Complaint: Respiratory Problem Stated Complaint: COVID SYMPTOMS Time Seen by Provider: 07/28/20 18:34 Source of Information: Reports: Patient History Limitations: Reports: No Limitations - History of Present Illness INITIAL COMMENTS - FREE TEXT/NARRATIVE: Fuad is a 59-year-old male presenting to the ED with Covid-like symptoms con sisting of headache, body aches, congestion, cough, and diarrhea. The patient lives in a residence with his son and his , their 6 kids and the patient's . There are multiple members of the family that have been testing positive for Covid this week. The patient denies any fever or chills, loss of taste or smell, shortness of breath or chest pain, nausea or vomiting. His appetite remains unchanged. - Related Data Allergies Allergy/AdvReac Type Severity Reaction Status Date / Time camphor* [From Vicks Vaporub] Allergy Shortness Verified 06/30/20 21:13 of Breath eucalyptus Allergy Shortness Verified 06/30/20 21:13 [From Vicks Vaporub] of Breath menthol [From Vicks Vaporub] Allergy Shortness Verified 06/30/20 21:13 of Breath petrolatum,white Allergy Shortness Verified 06/30/20 21:13 [From Vicks Vaporub] of Breath turpentine oil Allergy Shortness Verified 06/30/20 21:13 [From Vicks Vaporub] of Breath Home Meds: Home Meds Losartan [Cozaar] 100 mg PO DAILY 08/12/18 [History] Past Medical History HEENT History: Reports: Impaired Vision Cardiovascular History: Reports: Hypertension Musculoskeletal History: Reports: Back Pain, Chronic - Infectious Disease History Infectious Disease History: Reports: Chicken Pox, Measles, Mumps - Past Surgical History Head Surgeries/Procedures: Reports: None HEENT Surgical History: Reports: None Cardiovascular Surgical History: Reports: None Musculoskeletal Surgical History: Reports: None Dermatological Surgical History: Reports: None Social & Family History - Family History Family Medical History: Unobtainable - Caffeine Use Caffeine Use: Reports: Coffee, Soda - Recreational Drug Use Recreational Drug Use: No ED ROS GENERAL - Review of Systems Review Of Systems: See Below Constitutional: Reports: Malaise, Fatigue HEENT: Reports: Other (Nasal congestion) Respiratory: Reports: Cough Cardiovascular: Reports: No Symptoms Endocrine: Reports: No Symptoms GI/Abdominal: Reports: Diarrhea : Reports: No Symptoms Musculoskeletal: Reports: Other (Generalized body aches) Skin: Reports: No Symptoms Neurological: Reports: Headache Psychiatric: Reports: No Symptoms Hematologic/Lymphatic: Reports: No Symptoms Immunologic: Reports: No Symptoms ED EXAM, GENERAL - Physical Exam Exam: See Below Exam Limited By: No Limitations General Appearance: Alert, WD/WN, No Apparent Distress Eye Exam: Bilateral Eye: EOMI, PERRL Nose: Nasal Swelling, Nasal Drainage, Clear Rhinorrhea Throat/Mouth: Normal Inspection, Normal Lips, Normal Oropharynx, Normal Voice, No Airway Compromise. No: Dysphagia, Inflammation Head: Atraumatic, Normocephalic Neck: Normal Inspection, Supple, Non-Tender, Full Range of Motion. No: Carotid Bruit, Lymphadenopathy (R), Lymphadenopathy (L) Respiratory/Chest: No Respiratory Distress, Lungs Clear, Normal Breath Sounds, Chest Non-Tender Cardiovascular: Normal Peripheral Pulses, Regular Rate, Rhythm, No Edema, No Murmur Peripheral Pulses: 2+: Radial (L), Radial (R) GI/Abdominal: Normal Bowel Sounds, Soft, Non-Tender, No Distention. No: Guarding, Rebound Back Exam: Normal Inspection, Full Range of Motion Extremities: Normal Inspection, Normal Range of Motion, Non-Tender, No Pedal Edema Neurological: Alert, Oriented, Normal Cognition, Normal Gait, No Motor/Sensory Deficits Psychiatric: Normal Affect, Normal Mood Skin Exam: Warm, Dry, Intact, Normal Color, No Rash Lymphatic: No Adenopathy Course - Vital Signs Last Recorded V/S: Last Vital Signs Temp 36.1 C 07/28/20 18:27 Pulse Resp 16 07/28/20 18:27 BP 186/70 H 07/28/20 18:27 Pulse Ox 99 07/28/20 18:27 - Orders/Labs/Meds Orders: Active Orders 24 hr Category Date Time Status Chest 2V [CR] Stat Exams 07/28/20 19:49 Taken Labs: Laboratory Tests 07/28/20 07/28/20 Range/Units 18:34 20:12 WBC 6.7 (4.5-11.0) K/uL RBC 4.04 L (4.30-5.90) M/uL Hgb 12.4 (12.0-15.0) g/dL Hct 37.8 L (40.0-54.0) % MCV 94 (80-98) fL MCH 31 (27-31) pg MCHC 33 (32-36) % Plt Count 174 (150-400) K/uL Neut % (Auto) 48 (36-66) % Lymph % (Auto) 36 (24-44) % [place] % (Auto) 13 H (2-6) % Eos % (Auto) 3 (2-4) % Baso % (Auto) 1 (0-1) % Influenza Type A RNA Negative (NEGATIVE) Influenza Type B RNA Negative (NEGATIVE) RSV Rapid Negative (NEGATIVE) SARS-CoV-2 RNA ([place]) Negative (NEGATIVE) - Radiology Interpretation Free Text/Narrative:: Chest 2 view x-ray. There is no evidence for acute infiltrates or hilar adenopathy to suggest that acute bacterial infection. Departure - Departure Time of Disposition: 20:52 Disposition: Home, Self-Care 01 Condition: Good Clinical Impression: Viral URI with cough - Discharge Information Instructions: Viral Respiratory Infection, [id number] Referrals: PCP,None [Primary Care Provider] - Forms: ED Department Discharge Care Plan Goals: Your Covid test came back negative today, however, given that multiple members of your family are Covid positive I still think that you may be and just have a false negative test. Otherwise, your blood work and chest x-ray are unremarkable for pneumonia or significant bacterial infection. This is likely again a viral infection possibly COVID-19. Management your symptoms include Tylenol or ibuprofen for body aches, fever or chills, or headache. Push plenty of fluids to prevent dehydration. I recommend since you have been exposed to others with Covid that you still quarantine at the same time. That other members of the family are which would be for the next 10 to 14 days. Should you develop any significant worsening shortness of breath feel free to return to the ED for reevaluation as pneumonias can sometimes develop in concert with these viral infections. Sepsis Event Note (ED) - Evaluation Sepsis Screening Result: No Definite Risk - Focused Exam Vital Signs: Vital Signs Temp Resp BP Pulse Ox 07/28/20 18:27 36.1 C 16 186/70 H 99 07/28/20 18:26 36.1 C 16 186/70 H 99 - Problem List & Annotations (1) Viral URI with cough SNOMED Code(s): 657498609, 369319706 Code(s): J06.9 - ACUTE UPPER RESPIRATORY INFECTION, UNSPECIFIED Status: Acute Priority: Medium Current Visit: Yes - Problem List Review Problem List Initiated/Reviewed/Updated: Yes - My Orders Last 24 Hours: My Active Orders 07/28/20 19:49 Chest 2V [CR] Stat - Assessment/Plan Last 24 Hours: My Active Orders 07/28/20 19:49 Chest 2V [CR] Stat
[2020-07-28 19:25] LABS: CORONAVIRUS COVID-19 NAA NEGATIVE (NEGATIVE)
--- NOTE | 2020-07-29 09:35 | CR ---
CHEST: 2 view CLINICAL HISTORY:Cough COMPARISON:2019 FINDINGS: The heart size, pulmonary vascularity and hilar structures are normal. No infiltrate effusion or pneumothorax is seen. There are nodular densities bilaterally which are consistent with nipple shadows. IMPRESSION: No acute cardiopulmonary process.
== END 2020-07-28 21:18 | disposition home or self-care (01) ==
LOC: JP.ED 17:41
DX: J06.9 Acute upper respiratory infection, unspecified (principal); I10 Essential (primary) hypertension; Z79.899 Other long term (current) drug therapy; Z88.8 Allergy status to other drugs, medicaments and biological substances; Z20.822 Contact with and (suspected) exposure to COVID-19
CPT/HCPCS: 0241U; 36415; 71046; 85025; 99284

== ENCOUNTER 2021-11-25 19:03 | Emergency (ER) | payer SELFPAY ==
[2021-11-25 19:47] LABS: TROPONIN I HIGH SENSITIVITY 42.5 pg/mL (<=60.3)
[2021-11-25] MEDS ORDERED: Sodium Chloride 0.9% 10 ML Syringe FLUSH PRN (20:03)
[2021-11-25] MEDS ORDERED: Iopamidol 755 Mg/ML 100 ML Bottle IV SCH (20:15)
[2021-11-25] MEDS ORDERED: Sodium Chloride 0.9% 100 ML IV SCH (20:15)
[2021-11-25 20:20] LABS: CORONAVIRUS COVID-19 NAA NEGATIVE (NEGATIVE)
[2021-11-25 21:06] VITALS: BP 146/60; PULSE 61
[2021-11-25] MEDS ORDERED: Levofloxacin 250 MG Tab PO ONE (21:15)
== END 2021-11-25 21:45 | disposition home or self-care (01) ==
LOC: JP.ED 19:03
DX: J18.9 Pneumonia, unspecified organism (principal); R91.8 Other nonspecific abnormal finding of lung field; I10 Essential (primary) hypertension; Z88.8 Allergy status to other drugs, medicaments and biological substances; Z79.899 Other long term (current) drug therapy; Z20.822 Contact with and (suspected) exposure to COVID-19
CPT/HCPCS: 0241U; 36415; 71046; 71275; 80053; 84484; 85025; 85379; 86140; 93005; 99285; A9270; J3490; Q9967

== ENCOUNTER 2022-02-20 13:11 | Emergency (ER) | payer MEDICAID ==
[2022-02-20 16:00] LABS: ESTIMATED GFR 69 mL/min (>60)
[2022-02-20] MEDS ORDERED: Iopamidol 612 MG/ML 100 ML Bottle IV PRN (17:39)
[2022-02-20] MEDS ORDERED: Sodium Chloride 0.9% 75 ML IV SCH (17:45)
[2022-02-20] MEDS ORDERED: Sodium Chloride 0.9% 10 ML Syringe FLUSH PRN (19:10)
[2022-02-20] MEDS ORDERED: NS + KCl 20mEq/L 1,000 ML IV SCH (19:15)
[2022-02-20] MEDS: Ertapenem 1 GM in Sodium Chloride 0.9% 100 ML IV SCH (19:33)
[2022-02-20] MEDS ORDERED: Acetaminophen 325 MG Tab PO PRN (21:57)
[2022-02-20] MEDS: HYDROmorphone 0.5 MG/0.5 ML Syringe IVPUSH PRN (22:02)
[2022-02-20] MEDS: Ibuprofen 600 MG Tab PO PRN (23:13)
[2022-02-21] MEDS: Sodium Chloride 0.9% 1,000 ML IV SCH ×2 (03:13→07:13)
[2022-02-21] MEDS: Ibuprofen 600 MG Tab PO PRN (08:36)
[2022-02-21] MEDS: HYDROmorphone 0.5 MG/0.5 ML Syringe IVPUSH PRN ×2 (11:21→16:13)
[2022-02-21] MEDS ORDERED: Sodium Chloride 0.9% 1,000 ML IV SCH (11:45)
[2022-02-21] MEDS ORDERED: amLODIPine 5 MG Tab PO SCH (12:15)
[2022-02-21 12:17] LABS: ESTIMATED GFR 86 mL/min (>60)
[2022-02-21] MEDS ORDERED: Potassium Chloride 20 MEQ, Lidocaine 1% 2 ML in Sodium Chloride 0.9% 100 ML IV SCH ×2 (12:45→13:30)
[2022-02-21] MEDS ORDERED: Losartan 50 MG Tab PO ONE (14:41)
[2022-02-21] MEDS: Potassium Chloride 20 MEQ, Lidocaine 1% 2 ML in Sodium Chloride 0.9% 100 ML IV SCH ×2 (16:19→18:47)
[2022-02-21 19:34] VITALS: BP 175/69; PULSE 75
[2022-02-21] MEDS: Ertapenem 1 GM in Sodium Chloride 0.9% 100 ML IV SCH (20:14)
[2022-02-22] MEDS ORDERED: Losartan 50 MG Tab PO SCH (09:00)
== END 2022-02-21 20:32 ==
LOC: JP.ED 13:11
DX: J43.0 Unilateral pulmonary emphysema [MacLeod's syndrome] (principal); I10 Essential (primary) hypertension; Z91.048 Other nonmedicinal substance allergy status; Z79.899 Other long term (current) drug therapy; Z87.891 Personal history of nicotine dependence; Z20.822 Contact with and (suspected) exposure to COVID-19
CPT/HCPCS: 36415; 71046; 71260; 80053; 83605; 85027; 86140; 87040; 87070; 87077; 87186; 87205; 87635; 96361; 96365; 96366; 96367; 96375; 99284; 99285; A9270; J1170; J1335; J3370; J3480; J3490; J7030; J7050; Q9967; U0002

== ENCOUNTER 2022-03-28 09:34 | Emergency (ER) | payer MEDICAID ==
[2022-03-28 10:24] VITALS: BP 138/62; PULSE 54
[2022-03-28] MEDS ORDERED: Ketorolac 30 MG/ML SDV IM ONE (11:11)
== END 2022-03-28 12:55 | disposition home or self-care (01) ==
LOC: JP.ED 09:34
DX: R09.1 Pleurisy (principal); I10 Essential (primary) hypertension; Z91.048 Other nonmedicinal substance allergy status; Z88.8 Allergy status to other drugs, medicaments and biological substances; Z79.899 Other long term (current) drug therapy; Z87.891 Personal history of nicotine dependence
CPT/HCPCS: 71046; 96372; 99284; J1885

== ENCOUNTER 2025-02-04 08:23 | Emergency (ER) | payer MEDICARE ==
[2025-02-04 08:51] LABS: BASOPHILS ABSOLUTE AUTO 0.03 K/uL (0.00-0.10); BASOPHILS PERCENT AUTO 0.6 % (0.1-1.3); EOSINOPHILS ABSOLUTE AUTO 0.08 K/uL (0.00-0.40); EOSINOPHILS PERCENT AUTO 1.7 % (0.0-5.4); IMMATURE GRAN ABSOLUTE AUTO 0.04 K/uL (0.00-0.23); IMMATURE GRAN PERCENT AUTO 0.9 % (0.0-0.7); LYMPHOCYTES ABSOLUTE AUTO 0.83 K/uL (0.8-3.3); LYMPHOCYTES PERCENT AUTO 17.7 % (11.4-47.7); MONOCYTES ABSOLUTE AUTO 0.29 K/uL (0.20-0.90); MONOCYTES PERCENT AUTO 6.2 % (3.3-12.6); NEUTROPHILS ABSOLUTE AUTO 3.43 K/uL (1.0-7.6); NEUTROPHILS PERCENT AUTO 72.9 % (40.0-78.1); PLATELET COUNT,PLT 157 K/uL (130-375); RED BLOOD CELL COUNT 3.47 M/uL (4.14-5.76); WHITE BLOOD CELL COUNT,WBC 4.7 K/uL (3.2-11.0)
[2025-02-04 08:52] VITALS: BP 122/40; PULSE 65
[2025-02-04 09:11] LABS: INR 1.1; PTT,PARTIAL THROMBOPLSTIN TIME 25.5 sec (21.8-27.3)
[2025-02-04 09:19] LABS: ALANINE AMINOTRANSFERASE,ALT 34 U/L (12-78); ASPARTATE AMNIOTRANSFERASE,AST 12 U/L (15-37); BILIRUBIN TOTAL 0.6 mg/dL (0.2-1.0); BLOOD UREA NITROGEN,BUN 12 mg/dL (7-18); CARBON DIOXIDE,CO2 25 mmol/L (21-32); CHLORIDE,CL 104 mmol/L (100-108); CREATININE 1.1 mg/dL (0.8-1.3); EST CRCL DRUG DOSING (CG) 65.64 mL/min; ESTIMATED GFR 75 mL/min (>60); GLUCOSE RANDOM 95 mg/dL (74-106); POTASSIUM,K 3.4 mmol/L (3.6-5.2); PRO B-TYPE NATRIUR PEPT,BNPPRO 192 pg/mL (5-125); PROTEIN TOTAL,TP 6.1 g/dL (6.4-8.2); SODIUM,NA 138 mmol/L (140-148); TROPONIN I HIGH SENSITIVITY 24.5 pg/mL (<=60.3)
[2025-02-04 09:22] LABS: A/G RATIO 0.9 (1.2-2.2)
[2025-02-04] MEDS: Iopamidol 755 Mg/ML 100 ML Bottle IV ONE (10:37)
[2025-02-04] MEDS: Sodium Chloride 0.9% 10 ML Syringe FLUSH ONE (10:37)
== END 2025-02-04 10:47 | disposition home or self-care (01) ==
LOC: JP.ED 08:23
DX: R07.89 Other chest pain (principal); I10 Essential (primary) hypertension; Z79.899 Other long term (current) drug therapy; Z88.8 Allergy status to other drugs, medicaments and biological substances; Z91.048 Other nonmedicinal substance allergy status
CPT/HCPCS: 36415; 71046; 71275; 80053; 83880; 84484; 85025; 85379; 85610; 85730; 99285; Q9967